=== PATIENT | male | born 1975 | race Caucasian/White ===

== ENCOUNTER 2021-08-03 12:30 | Emergency (ER) | payer OTHER ==
[~2021-08-03] VITALS: Ht 167.6 cm; Wt 90.0 kg
[2021-08-03] MEDS ORDERED: IBUPROFEN 600MG TABLET PO ONE (12:45)
[2021-08-03] MEDS ORDERED: NAPR-1176 MT (13:06)
[2021-08-03 13:17] VITALS: BP 143/66
== END 2021-08-03 13:18 | disposition home or self-care (01) ==
LOC: ER 12:30
DX: S93.402A Sprain of unspecified ligament of left ankle, initial encounter (principal); Y93.01 Activity, walking, marching and hiking; Y93.89 Activity, other specified; Y92.89 Other specified places as the place of occurrence of the external cause; Y99.8 Other external cause status
CPT/HCPCS: 73610; 99283